=== PATIENT | male | born 1995 | race Caucasian/White ===

== ENCOUNTER 2018-03-31 13:58 | Emergency (ER) | payer OTHER ==
--- NOTE | 2018-03-31 14:07 | ED Physician Documentation ---
Syncope/Near Syncope - HISTORIAN Historian: patient - HPI Stated Complaint: syncope/anxiety Chief Complaint: Near Syncope Witnessed: Yes (Girlfriend ) Witnessed By: friend Position at Time of Episode: standing (in shower ) Symptoms Prior to Episode: headache Character of Events(s): lost consciousness (not sure he did hit the front of his head ) Last known Well Code/Unknown Code: Unknown Symptoms after Event: denies: confused after event, incontinent of urine, incontinent of stool, breathing shallow, breathing stopped, lost pulse, dextrostick low [employer] PROFESSIONAL, given D50 [employer]ESSIONAL Location of Injury: head (front ) Associated Symptoms: other (anxiety ) Further Comments: yes (He states this week he did see PCP for the continued syncope. He states he has been "almost" passing out for a "while now" and he did see a physician and he was told he was having anxiety. He started the meds 3 days ago. He does not notice any improvement. he states today he was in the shower getting ready for work and he felt "faint" and he did pass out - he hit his head on the shower with the front of his head. His girlfriend states he did shake a lot while laying on the cough post this episode although he was awake. He did not have any incontience of urine or stool. He did not have any other symtpoms. He states he does have anxiety) - ROS CONST: denies: recent illness, fever, cough EYES/ENT: none GI/: denies: diarrhea, problems urinating MS/SKIN/LYMPH: denies: joint pain, leg swelling, rash NEURO/PSYCH: anxiety, depression - PAST HX Cardiac Disease: none PE Risk Factors: none Surgeries/Procedures: none Immunizations: UTD - SOCIAL HX Smoking History: non-smoker Alcohol Use: none Drug Use: none - FAMILY HX Family History: none - VITAL SIGNS Vital Signs: Vital Signs Temp Pulse Resp BP Pulse Ox 98.1 F 76 14 130/73 97 03/31/18 19:45 03/31/18 19:45 03/31/18 19:45 03/31/18 19:45 03/31/18 19:45 - REVIEWED ASSESSMENTS Nursing Assessment Reviewed: Yes Vitals Reviewed: Yes Progress - Progress Progress: 1600: results discussed and he is agreeable to the plan DG ED Results Lab/Radiology - Lab Results Lab Results: Lab Results 03/31/18 03/31/18 03/31/18 Unknown Unknown 14:17 WBC 10.00 K/ul K/ul (4.00-12.00) RBC 5.14 M/ul M/ul (3.90-5.20) Hgb 15.5 g/dL g/dL (12.0-18.0) Hct 44.0 % % (37.0-53.0) MCV 85.5 fl fl (80.0-100.0) MCH 30.2 pg pg (28.0-34.0) MCHC 35.3 g/dL g/dL (30.0-36.0) RDW 13.2 % % (11.3-14.3) Plt Count 318 K/mm3 K/mm3 (130-400) Neut % (Auto) 69.4 % % (39.0-79.0) Lymph % (Auto) 21.1 % % (16.0-50.0) [place] % (Auto) 4.5 % % (0.0-11.0) Eos % (Auto) 3.3 % % (0.0-6.8) Baso % (Auto) 0.6 (0.0-1.5) Neut # (Auto) 6.9 # k/uL # k/uL (1.4-7.7) Lymph # (Auto) 2.1 # k/uL # k/uL (0.6-4.0) [place] # (Auto) 0.4 # k/uL # k/uL (0.0-0.9) Eos # (Auto) 0.3 # k/uL # k/uL (0.0-0.6) Baso # (Auto) 0.1 # k/uL # k/uL (0.0-0.5) Reactive Lymphs % 1.1 % % (0.0-5.0) Reactive Lymphs # 0.1 # k/uL # k/uL (0.0-0.8) Sodium 141 mmol/L mmol/L (136-145) Potassium 4.1 mmol/L mmol/L (3.5-5.1) Chloride 109 mmol/L H mmol/L (98-107) Carbon Dioxide 22 mmol/L mmol/L (22-30) BUN 11 mg/dL mg/dL (9-20) Creatinine 1.20 mg/dL mg/dL (0.66-1.25) Estimated Creat Clear 142 Est GFR ( Amer) > 60 (60 - ) Est GFR (Non-Af Amer) > 60 (60 - ) Glucose 92 mg/dL mg/dL (74-106) Calcium 8.8 mg/dL mg/dL (8.4-10.2) Total Bilirubin 0.2 mg/dL mg/dL (0.2-1.3) AST 31 U/L U/L (15-46) ALT 59 U/L U/L (13-69) Alkaline Phosphatase 76 U/L U/L (38-126) Total Protein 7.6 g/dL g/dL (6.3-8.2) Albumin 4.3 g/dL g/dL (3.5-5.0) Urine Color Yellow (YELLOW) Urine Appearance Clear (CLEAR) Urine pH 6.0 (5.0 - 8.0) Ur Specific Boyd 1.025 (1.010-1.030) Urine Protein Negative mg/dL mg/dL (NEGATIVE) Urine Ketones Trace mg/dL H mg/dL (NEGATIVE) Urine Occult Blood Negative (NEGATIVE) Urine Nitrite Negative (NEGATIVE) Urine Bilirubin Negative (NEGATIVE) Urine Urobilinogen 1.0 Eu Eu (0.2-1.0) Ur Leukocyte Esterase Negative (NEGATIVE) Urine Glucose Negative mg/dL mg/dL (NEGATIVE) Opiates Screen Oxycodone Screen Methadone Screen Ur Barbiturates Screen Tricyclic Antidepress Phencyclidine Screen Amphetamines Screen U Methamphetamines Scrn MDMA Benzodiazepines Screen Urine Cocaine Screen U Cannabinoids Screen Ethyl Alcohol < 10.0 mg/dL mg/dL (0.0-10.0) 03/31/18 14:17 WBC RBC Hgb Hct MCV MCH MCHC RDW Plt Count Neut % (Auto) Lymph % (Auto) [place] % (Auto) Eos % (Auto) Baso % (Auto) Neut # (Auto) Lymph # (Auto) [place] # (Auto) Eos # (Auto) Baso # (Auto) Reactive Lymphs % Reactive Lymphs # Sodium Potassium Chloride Carbon Dioxide BUN Creatinine Estimated Creat Clear Est GFR ( Amer) Est GFR (Non-Af Amer) Glucose Calcium Total Bilirubin AST ALT Alkaline Phosphatase Total Protein Albumin Urine Color Urine Appearance Urine pH Ur Specific Boyd Urine Protein Urine Ketones Urine Occult Blood Urine Nitrite Urine Bilirubin Urine Urobilinogen Ur Leukocyte Esterase Urine Glucose Opiates Screen Negative ng/mL ng/mL (<300) Oxycodone Screen Negative ng/mL ng/mL (<100) Methadone Screen Negative ng/mL ng/mL (<200) Ur Barbiturates Screen Negative ng.mL ng.mL (<200) Tricyclic Antidepress Negative ng/mL ng/mL (<300) Phencyclidine Screen Negative ng/mL ng/mL (< 25) Amphetamines Screen Negative ng/mL ng/mL (<500) U Methamphetamines Scrn Negative ng/mL ng/mL (<500) MDMA Negative ng/mL ng/mL (<500) Benzodiazepines Screen Negative ng/mL ng/mL (<150) Urine Cocaine Screen Negative ng/mL ng/mL (<150) U Cannabinoids Screen Non negative ng/mL H ng/mL (< 50) Ethyl Alcohol - Radiology Radiology Impressions: Examination: CT head without contrast History: CT HEAD W/O, SYNCOPE, HIT HEAD IN THE SHOWER TODAY (Hx) Comparison exam: None available Technique: Noncontrast head CT protocol. Findings: Ventricles and sulci are appropriate for patient age. Cerebrocerebellar parenchyma demonstrates normal attenuation. No evidence for parenchymal hemorrhage. No evidence for mass or mass effect. No midline shift. No extra axial fluid collections. Partial visualization of the paranasal sinuses demonstrates a large left maxillary sinus mucous retention cyst. Mastoid air cells, orbits, skull and scalp without gross irregularity. Impression: No acute parenchymal process. No hemorrhage. Electronically signed on Mar 31, 2018 2:55:34 PM CDT by: Odilon Juan - Orders Orders: ED Orders Category Date Time Status Place IV Lock 1T Care 03/31/18 14:[address] BRAIN W/O CONTRAST Stat Exams 03/31/18 Completed ALCOHOL MEDICAL USE ONLY Stat Lab 03/31/18 Completed CBC/PLATELET/DIFF Routine Lab 03/31/18 Completed CMP Routine Lab 03/31/18 Completed UA MACRO DIP ONLY Routine Lab 03/31/18 14:17 Completed UDS [DRUG SCREEN URINE MEDICAL ONLY] Routine Lab 03/31/18 14:17 Completed 0.9 % Sodium Chloride [Normal Saline] 1,000 ml Med 03/31/18 15:07 Discontinued IV .STK-MED 0.9 % Sodium Chloride [Normal Saline] 1,000 ml Med 03/31/18 14:30 Discontinued IV Q10H EKG WITH COMPARISON Stat Ther 03/31/18 Ordered Syncope Physical Exam - Physical Exam General Appearance: no acute distress, alert EENT: nml eye inspection, PERRL Neck/Back: neck supple Respiratory: no resp distress, chest non-tender, breath sounds normal CVS: reg rate & rhythm, heart sounds normal, equal pulses, no murmur Abdomen: non-tender, no organomegaly, nml bowel sounds, no distention Skin: warm/dry, normal color Extremities: non-tender, normal range of motion, no evidence of injury, no edema - Neuro/Psych Higher Functions: alert, oriented x3, no evidence of acute CVA, mood/affect nml, eyes open Cranial Nerves: nml as tested Cerebellar: nml as tested Sensorimotor: nml motor response Discharge Clincal Impression: Syncope and collapse, Anxiety Referrals: Primary Doctor,No [Primary Care Provider] - 2 Days Comments: 1. Continue home meds 2. follow up with PCP SHENA 3. Monitor symptoms 4. Return to ER for any concerns Condition: Stable Disposition: 01 HOME, SELF-CARE Decision to Admit: NO Date of Decison to Admit: 03/31/18 Decision Time: 16:13
[2018-03-31] MEDS ORDERED: 0.9 % SODIUM CHLORIDE 1,000 ML IV SCH (14:30)
[2018-03-31 14:44] VITALS: BP 130/73
[2018-03-31] MEDS ORDERED: 0.9 % SODIUM CHLORIDE 1,000 ML IV ONE (15:07)
[2018-03-31 15:36] LABS: BASOPHILS % 0.6 (0.0-1.5); EOSINOPHILS % 3.3 % (0.0-6.8); MEAN CORPUSCULAR HEMOGLOBIN 30.2 pg (28.0-34.0); MEAN CORPUSCULAR VOLUME 85.5 fl (80.0-100.0); MONOCYTES % 4.5 % (0.0-11.0); NEUTROPHILS # 6.9 # k/uL (1.4-7.7)
[2018-03-31 15:54] LABS: APPEARANCE,URINE CLEAR (CLEAR); COLOR,URINE YELLOW (YELLOW); OCCULT BLOOD,URINE NEGATIVE (NEGATIVE)
[2018-03-31 15:55] LABS: CANNABINOIDS NON NEGATIVE ng/mL (< 50); METHYLENEDIOXYMETHAMPHETAMINE NEGATIVE ng/mL (<500)
[2018-03-31 16:02] LABS: eGFR (African) > 60; eGFR (Non-African) > 60
--- NOTE | 2018-03-31 19:07 | Diagnostic Imaging Report ---
JAZMYNE ALCANTARA [facility] [address] [facility] [address] [place], [place]. [address] Report Submission Date: Mar 31, 2018 2:55:34 PM CDT Patient Study Name: RONNIE HOUSE Date: Mar 31, 2018 2:42:55 PM CDT Modality Type: CT\SR Gender: M Description: CT BRAIN W/O CONTRAST : 89 Institution: [facility] Physician: JAZMYNE ALCANTARA Examination: CT head without contrast History: CT HEAD W/O, SYNCOPE, HIT HEAD IN THE SHOWER TODAY (Hx) Comparison exam: None available Technique: Noncontrast head CT protocol. Findings: Ventricles and sulci are appropriate for patient age. Cerebrocerebellar parenchyma demonstrates normal attenuation. No evidence for parenchymal hemorrhage. No evidence for mass or mass effect. No midline shift. No extra axial fluid collections. Partial visualization of the paranasal sinuses demonstrates a large left maxillary sinus mucous retention cyst. Mastoid air cells, orbits, skull and scalp without gross irregularity. Impression: No acute parenchymal process. No hemorrhage. Electronically signed on Mar 31, 2018 2:55:34 PM CDT by: Odilon BARCENAS
== END 2018-03-31 16:30 | disposition home or self-care (01) ==
LOC: ED 13:58
DX: S00.83XA Contusion of other part of head, initial encounter (principal); F41.9 Anxiety disorder, unspecified; W19.XXXA Unspecified fall, initial encounter; Y92.012 Bathroom of single-family (private) house as the place of occurrence of the external cause; Y93.9 Activity, unspecified; Y99.9 Unspecified external cause status; R55 Syncope and collapse
CPT/HCPCS: 70450; 80053; 80320; 80377; 81002; 85025; 93005; J7030; 96365; 99284; G0480; G0481; S1016